=== PATIENT | male | born 1990 | race Caucasian/White ===

== ENCOUNTER 2019-10-18 13:56 | Emergency (ER) | payer OTHER ==
[~2019-10-18] VITALS: Ht 180.3 cm; Wt 77.3 kg
[2019-10-18 14:03] VITALS: Ht 180.3 cm; Wt 77.3 kg
[2019-10-18] MEDS ORDERED: ALBUTEROL0.63 MG/3 (14:05)
[2019-10-18] MEDS ORDERED: FEXOFENADINE HC60 MG (14:05)
[2019-10-18 15:36] VITALS: BP 131/80
== END 2019-10-18 15:38 | disposition home or self-care (01) ==
LOC: D.ER 13:56
DX: M54.2 Cervicalgia (principal); V89.2XXA Person injured in unspecified motor-vehicle accident, traffic, initial encounter; Y93.9 Activity, unspecified; Y92.9 Unspecified place or not applicable; J45.909 Unspecified asthma, uncomplicated